=== PATIENT | male | born 1950 | race Caucasian/White ===

== ENCOUNTER 2020-08-01 09:41 | Outpatient (REF) | payer MEDICARE, MEDICAID, SELFPAY ==
[2020-08-01 10:23] LABS: MANUAL DIFF FLAG NO
[2020-08-01 10:29] LABS: Basophils Percent Auto 0.7 % (0-2); Eosinophils Absolute Auto 0.3 X10*3/uL (0.0-0.4); Eosinophils Percent Auto 4.6 % (0-4); Hematocrit 43.7 % (42-52); Hemoglobin 15.5 g/dl (14.0-18.0); Imm Gran Abs Auto 0.04 X10*3/uL (0.00-0.03); Imm Gran Pct Auto 0.7 % (0.0-0.4); Lymphocytes Absolute Auto 2.2 X10*3/uL (1.2-4.9); Lymphocytes Percent Auto 37.8 % (20-40); Mean Corpuscular HGB Conc 35.5 g/dl (31.0-36.0); Mean Corpuscular Hemoglobin 33.1 pg (27.0-33.0); Mean Corpuscular Volume 93.4 fL (80-98); Mean Platelet Volume 10.2 fL (9.4-12.4); Monocytes Absolute Auto 0.6 X10*3/uL (0.1-1.2); Monocytes Percent Auto 9.7 % (2-11); Neutrophils Absolute Auto 2.8 X10*3/uL (2.0-8.3); Neutrophils Percent Auto 46.5 % (45-73); Platelet Count 230 X10*3/uL (160-400); Red Blood Count 4.68 X10*6/uL (4.60-5.80); White Blood Count 5.9 X10*3/uL (4.8-10.8)
[2020-08-01 10:49] LABS: Creatinine Urine 88.71 mg/dL; Microalbumin Urine < 5.0 mg/L
[2020-08-01 11:03] LABS: Estimated Average Glucose 123 mg/dL; Hemoglobin A1c % 5.9 %
[2020-08-01 11:09] LABS: Thyroid Stimulating Hormone 3.25 uIU/mL (0.32-4.0)
[2020-08-01 11:10] LABS: Alanine Aminotransferase 38 U/L (0-40); Albumin Level 4.5 g/dL (3.5-5.0); Alkaline Phosphatase 56 U/L (39-117); Anion Gap 13 (12-20); Aspartate Amino Transferase 25 U/L (5-37); Bilirubin Total 1.5 mg/dL (0.0-1.0); Blood Urea Nitrogen 23 mg/dL (9-16); Calcium 9.8 mg/dL (8.4-10.2); Carbon Dioxide 28 mmol/L (22-29); Chloride 103 mmol/L (96-108); Cholesterol 133 mg/dL; Estimated Glomerular Filt Rate 53; Glucose Fasting 114 mg/dL (60-99); HDL Cholesterol 37 mg/dL; LDL Cholesterol Calculated 83 mg/dl; Potassium 5.6 mmol/L (3.3-5.1); Sodium 138 mmol/L (135-145); Total Protein 7.1 g/dL (6.5-8.0); Triglycerides 69 mg/dL
== END 2020-08-01 09:42 | disposition home or self-care (01) ==
LOC: HO.10HDL 09:41
PROVIDERS: Visit Provider Internal Medicine
DX: E11.9 Type 2 diabetes mellitus without complications (principal); I10 Essential (primary) hypertension
CPT/HCPCS: 36415; 80053; 80061; 82043; 83036; 84443; 85025

== ENCOUNTER 2020-09-04 09:48 | Outpatient (REF) | payer MEDICARE, MEDICAID, SELFPAY ==
[2020-09-04 11:23] LABS: Anion Gap 13 (12-20); Blood Urea Nitrogen 19 mg/dL (9-16); Calcium 9.8 mg/dL (8.4-10.2); Carbon Dioxide 26 mmol/L (22-29); Chloride 107 mmol/L (96-108); Estimated Glomerular Filt Rate > 60; Glucose Random 96 mg/dL (60-115); Potassium 5.4 mmol/L (3.3-5.1); Sodium 141 mmol/L (135-145)
== END 2020-09-04 09:49 | disposition home or self-care (01) ==
LOC: HO.LAB 09:48
PROVIDERS: PCP Internal Medicine; Visit Provider Internal Medicine
DX: E87.5 Hyperkalemia (principal)
CPT/HCPCS: 36415; 80048

== ENCOUNTER 2022-10-29 08:51 | Outpatient (REF) | payer MEDICARE, MEDICAID, SELFPAY ==
[2022-10-29 14:56] LABS: MANUAL DIFF FLAG NO
[2022-10-29 15:14] LABS: Basophils Absolute Auto 0.1 X10*3/uL (0.0-0.2); Basophils Percent Auto 0.8 % (0-2); Eosinophils Absolute Auto 0.6 X10*3/uL (0.0-0.4); Eosinophils Percent Auto 7.2 % (0-4); Hematocrit 44.2 % (42.0-52.0); Hemoglobin 15.1 g/dl (14.0-18.0); Imm Gran Abs Auto 0.08 X10*3/uL (0.00-0.03); Lymphocytes Absolute Auto 2.5 X10*3/uL (1.2-4.9); Lymphocytes Percent Auto 32.5 % (20-40); Mean Corpuscular HGB Conc 34.2 g/dl (31.0-36.0); Mean Corpuscular Hemoglobin 32.2 pg (27.0-33.0); Mean Corpuscular Volume 94.2 fL (80.0-98.0); Mean Platelet Volume 10.5 fL (9.4-12.4); Monocytes Absolute Auto 0.7 X10*3/uL (0.1-1.2); Monocytes Percent Auto 8.5 % (2-11); Neutrophils Absolute Auto 3.8 x10*3/uL (2.0-8.3); Platelet Count 270 X10*3/uL (160-400); Red Blood Count 4.69 X10*6/uL (4.60-5.80); Red Cell Distribution Width 11.9 % (11.0-16.0); White Blood Count 7.7 X10*3/uL (4.8-10.8)
[2022-10-29 16:03] LABS: Alanine Aminotransferase 38 U/L (0-40); Albumin Level 4.2 g/dL (3.5-5.0); Alkaline Phosphatase 61 U/L (39-117); Anion Gap 14 (12-20); Aspartate Amino Transferase 27 U/L (5-37); Bilirubin Total 0.6 mg/dL (0.0-1.0); Blood Urea Nitrogen 19 mg/dL (9-16); Calcium 9.7 mg/dL (8.4-10.2); Carbon Dioxide 27 mmol/L (22-29); Chloride 104 mmol/L (96-108); Cholesterol 148 mg/dL; Estimated Glomerular Filt Rate 56; Glucose Fasting 118 mg/dL (60-99); HDL Cholesterol 35 mg/dL; LDL Cholesterol Calculated 72 mg/dl; Potassium 5.4 mmol/L (3.3-5.1); Sodium 140 mmol/L (135-145); Total Protein 7.3 g/dL (6.5-8.0); Triglycerides 206 mg/dL
[2022-10-29 17:05] LABS: TSH reflex Free T4 4.08 uIU/mL (0.32-4.0)
[2022-10-29 19:28] LABS: Free T4 (Free Thyroxine) 0.97 ng/dL (0.71-1.85)
== END 2022-10-29 08:52 | disposition home or self-care (01) ==
LOC: HO.CHCLDS 08:51
PROVIDERS: Visit Provider Internal Medicine
DX: I10 Essential (primary) hypertension (principal); E11.9 Type 2 diabetes mellitus without complications
CPT/HCPCS: 36415; 80053; 80061; 84439; 84443; 85025

== ENCOUNTER 2022-11-17 10:23 | Outpatient (REF) | payer MEDICARE, MEDICAID, SELFPAY ==
[2022-11-17 14:37] LABS: MANUAL DIFF FLAG NO
[2022-11-17 14:42] LABS: Basophils Percent Auto 0.5 % (0-2); Eosinophils Absolute Auto 0.6 X10*3/uL (0.0-0.4); Eosinophils Percent Auto 8.6 % (0-4); Hematocrit 42.3 % (42.0-52.0); Hemoglobin 14.9 g/dl (14.0-18.0); Imm Gran Abs Auto 0.07 X10*3/uL (0.00-0.03); Lymphocytes Absolute Auto 2.1 X10*3/uL (1.2-4.9); Lymphocytes Percent Auto 28.7 % (20-40); Mean Corpuscular HGB Conc 35.2 g/dl (31.0-36.0); Mean Corpuscular Hemoglobin 32.3 pg (27.0-33.0); Mean Corpuscular Volume 91.8 fL (80.0-98.0); Mean Platelet Volume 10.5 fL (9.4-12.4); Monocytes Absolute Auto 0.7 X10*3/uL (0.1-1.2); Neutrophils Absolute Auto 3.9 x10*3/uL (2.0-8.3); Neutrophils Percent Auto 52.2 % (45-73); Platelet Count 229 X10*3/uL (160-400); Red Blood Count 4.61 X10*6/uL (4.60-5.80); Red Cell Distribution Width 12.2 % (11.0-16.0); White Blood Count 7.4 X10*3/uL (4.8-10.8)
[2022-11-17 15:10] LABS: Anion Gap 13 (12-20); Blood Urea Nitrogen 21 mg/dL (9-16); Carbon Dioxide 25 mmol/L (22-29); Chloride 107 mmol/L (96-108); Estimated Glomerular Filt Rate > 60; Glucose Random 144 mg/dL (60-115); Potassium 4.6 mmol/L (3.3-5.1); Sodium 140 mmol/L (135-145)
== END 2022-11-17 10:24 | disposition home or self-care (01) ==
LOC: HO.CHCLDS 10:23
PROVIDERS: Visit Provider Internal Medicine
DX: E87.5 Hyperkalemia (principal)
CPT/HCPCS: 36415; 80048; 85025

== ENCOUNTER 2023-08-19 08:43 | Outpatient (REF) | payer MEDICARE, MEDICAID, SELFPAY ==
[2023-08-19 14:31] LABS: Appearance Urine Clear; Color Urine Yellow; Glucose Urine UA Negative (Negative); Leukocyte Esterase Urine Negative (Negative); Nitrite Urine Negative (Negative); PH 5.5 (5.0-9.0); Urine Blood Negative (Negative); Urine Ketones Negative (Negative); Urine Protein Negative (Neg-Trace)
[2023-08-19 14:57] LABS: Estimated Average Glucose 166 mg/dL; Hemoglobin A1c % 7.4 % (<6.0)
[2023-08-19 15:01] LABS: Anion Gap 16 (12-20); Blood Urea Nitrogen 31 mg/dL (9-16); Calcium 10.4 mg/dL (8.4-10.2); Carbon Dioxide 24 mmol/L (22-29); Chloride 106 mmol/L (96-108); Estimated Glomerular Filt Rate 50; Glucose Random 137 mg/dL (60-115); Potassium 5.6 mmol/L (3.3-5.1); Sodium 140 mmol/L (135-145)
[2023-08-20 08:14] LABS: HIV AB/AG Nonreactive (Nonreactive); HIV Num 1 0.05 S/CO (0.00-0.99); ~HepC Num1 0.06 S/CO (0.00-0.79); ~Hepatitis C Antibody Nonreactive (Nonreactive)
[2023-08-23 22:44] LABS: RPR Rapid Plasma Reagin NON-REACTIVE (NON-REACTIVE)
== END 2023-08-19 08:44 | disposition home or self-care (01) ==
LOC: HO.CHCLDS 08:43
PROVIDERS: Visit Provider Internal Medicine
DX: Z11.3 Encounter for screening for infections with a predominantly sexual mode of transmission (principal); E11.9 Type 2 diabetes mellitus without complications
CPT/HCPCS: 36415; 80048; 81003; 83036; 86592; 86803; 87389

== ENCOUNTER 2023-08-26 10:17 | Outpatient (REF) | payer OTHER, SELFPAY ==
--- NOTE | ~2023-08-26 | US_ITS ---
EXAMINATION: US RETROPERITONEAL LIMITED (RENAL ONLY) CLINICAL INFORMATION: Low GFR. COMPARISON: Ultrasound abdomen 04/08/2017. TECHNIQUE: Real-time imaging of the kidneys. FINDINGS: RIGHT KIDNEY: 10.6 x 4.6 x 6.2 cm (SAG x AP x TRV). Cortical thinning. Normal echogenicity. No calculi or focal parenchymal lesions. No hydronephrosis. LEFT KIDNEY: 10.2 x 5.0 x 5.5 cm (SAG x AP x TRV). Cortical thinning. Normal echogenicity. No calculi or focal parenchymal lesions. No hydronephrosis. US/US renal BI IMPRESSION: Bilateral renal cortical thinning. No hydronephrosis.
== END 2023-08-26 10:18 | disposition home or self-care (01) ==
LOC: HO.HMGCX 10:17
PROVIDERS: PCP Internal Medicine; Visit Provider Internal Medicine
DX: R94.4 Abnormal results of kidney function studies (principal)
CPT/HCPCS: 76775

== ENCOUNTER 2024-07-17 09:41 | Outpatient (REF) | payer OTHER, SELFPAY ==
--- OUTSIDE RECORDS SUMMARY | 2024-07-17 10:50 | XMS_ITS | Clinical Summary ---
Author Organization [email or web address] Address [address] [facility] [address] [place] [address] Care Team Providers Care Gas Station Clerk Name Role Phone Trace Marquez MD Primary Care Provider [phone] Allergies Active Allergy Reactions Criticality Noted Date Comments Clonidine 07/31/2022 Other reaction(s): felt like zombie and dizzy Erythromycin Unknown 04/07/2017 Other reaction(s): Upset stomach Iodinated Contrast Media 07/31/2022 Metronidazole Low 07/19/2020 Peanut-Containing Drug Products 07/31/2022 Medications glucose 4 g chewable tabletIndicati ons:Type 2 diabetes mellitus without complication, without long-term current use of insulin ([facility]),Type 2 diabetes mellitus without complication, without long-term current use of insulin ([facility]) Chew 4 tablets (16 g) if needed for low blood sugar. 50 tablet 06/20/19 25 Active metFORMIN XR (Glucophage-XR ) 500 MG 24 hr tablet Take 1 tablet (500 mg) by mouth with evening meal. Do not crush, chew, or split. 30 tablet 07/18/19 25 Active amLODIPine (Norvasc) 5 MG tablet Take 1 tablet (5 mg) by mouth Once per day. 30 tablet 07/18/19 25 026 Active OneTouch Delica Lancets 33G misc Test blood sugar once daily 100 each 07/18/19 Active glucose blood (OneTouch Ultra) test stripIndicatio ns:Type 2 diabetes mellitus without complication, without long-term current use of insulin ([facility]) Test blood sugar once daily 100 strip 07/18/19 25 Active celecoxib (CeleBREX) 200 MG capsuleIndicat ions:Other secondary acute gout of multiple sites TAKE 1 CAPSULE BY MOUTH 2 TIMES DAILY. 60 capsule 08/10/19 24 025 Discontinued(Me d list cleanup (will not trigger notification to Pharmacy)) furosemide (Lasix) 20 MG tabletIndicati ons:Hyperkalem ia Take 1 tablet (20 mg) by mouth Once per day. 5 tablet 11 08/12/19 24 025 Discontinued(Me d list cleanup (will not trigger notification to Pharmacy)) glucose 4 g chewable tabletIndicati ons:Type 2 diabetes mellitus without complication, without long-term current use of insulin ([facility]) Chew 4 tablets (16 g) if needed for low blood sugar. 50 tablet 12 10/11/19 24 025 Discontinued(Re order (will not trigger notification to Pharmacy)) glucose blood ([employer] Experienceuch Ultra) test stripIndicatio ns:Type 2 diabetes mellitus without complication, without long-term current use of insulin ([facility]) To check the FS 2 times a day 100 strip 11 10/28/19 025 Discontinued(Re order (will not trigger notification to Pharmacy)) carbamide peroxide (Debrox) 6.5 % otic solutionIndica tions:Bilatera l impacted cerumen Administer 5-10 drops into affected ear(s) 2 times daily for 4 days. 30 mL 06/20/19 025 empagliflozin (Jardiance) 10 MGIndications: Type 2 diabetes mellitus without complication, without long-term current use of insulin ([facility]) Take 1 tablet (10 mg) by mouth Once per day. 30 tablet 11 06/20/19 025 Discontinued(Wil panda refused) Hospital, Clinic, or Other Facility Administered Medication Ordered Dose Route Frequency Start Date End Date Status Insulin Lispro solution 10 UnitsIndications:Type 2 diabetes mellitus without complication, without long-term current use of insulin (CMS/HCC) 10 Units IJ Once 06/19/2024 06/19/2024 Ended Active Problems Problem Noted Date Diagnosed Date Gout 07/31/2022 Type 2 diabetes mellitus 07/31/2022 Assessment & Plan (06/19/2023 3:06 AM EDT): Uncontrolled: The patient's diabetes medications are deemed ineffective. The plan includes discontinuing the old medication and initiating a new prescription. The patient expressed a preference for oral medication over injectables due to personal and caregiving responsibilities. A decision was made to prescribe 2 mg of an unspecified diabetes medication twice a day, starting with one 2 mg pill and adjusting based on blood sugar monitoring. The patient is advised to monitor blood sugar levels closely, especially for signs of hypoglycemia, which the patient has experienced in the past. Glucose tablets will be provided for emergency management of hypoglycemia. Additionally, the provider discussed the potential benefits of GLP-1 receptor agonists, which not only help in managing blood sugar levels but also offer cardiovascular and renal protection. The patient was given information on GLP-1s to review and discuss with Dr. Coffey in the upcoming appointment. Labs: glucose, hgb a1c Alcoholism 07/31/2022 Upper respiratory tract infection 07/31/2022 Insomnia 12/10/2020 Benign essential hypertension 03/10/2017 Encounters Date Type Department Care Team Description 07/17/2024 Travel 06/20/2024 Telephone [facility] [address] [place] [address] Trace Marquez MD 06/19/2024 9:30 AM EDT Office Visit [facility] [address] [place] [address] Trace Marquez MD Type 2 diabetes mellitus without complication, without long-term current use of insulin ([facility]) (Primary Dx); 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; Benign essential hypertension; Bilateral impacted cerumen; Type 2 diabetes mellitus without complication, without long-term current use of insulin (CMS/[facility]); Encounter for Medicare annual wellness exam 06/19/2024 Telephone [facility] [address] [place] [address] Trace Marquez MD 06/19/2024 Telephone [facility] [address] [place] [address] Trace Marquez MD 06/19/2024 Travel 06/16/2024 Telephone [facility] [address] [place] [address] Trace Marquez MD Chart Prep 06/16/2024 Orders Only [facility] [address] [place] [address] Maulik Frederick MD 06/12/2024 Patient Outreach [address] [address] Trace Marquez MD Pre-visit Planning (Pre visit planning LVM ) 05/22/2024 Orders Only [address] [address] Trace Marquez MD Neoplasm of scalp (Primary Dx) 05/22/2024 Telephone [facility] [address] [place] [address] Trace Marquez MD Referral 05/02/[address] [address] Trace Marquez MD Referral 04/19/2024 Refill [facility] [address] [place] [address] Ju Mann MD from Last 3 Months Immunizations Name Administration Dates Next Due Hep A, Unspecified 10/21/2005 Hep B, Unspecified 04/28/2006,12/30/2005 Td (adult), unspecified 11/10/2002 Social History Tobacco Use Types Packs/Day Years Used Date Smoking Tobacco: Former Cigarettes Q uit: 1988 Smokeless Tobacco: Never Alcohol Use Standard Drinks/Week Comments Not Currently 0 (1 standard drink = 0.6 oz pur e alcohol) Depression Answer Date Recorded Patient Health Questionnaire-9 Score 2 07/12/2023 Patient Health Questionnaire-9 Score 2 07/12/2023 Last PHQ-9: Questionnaire Data Not on file 0 07/12/2023 Housing Stability Answer Date Recorded What is your housing situation today? I have edson moreno 07/08/[address] you li ve. Do you have problems with any of the following? None of the above 07/08/2023 Food Insecurity Answer Date Recorded Within the past 12 months, y ou worried that your food would run out before you got money to buy more: Sometimes True 2023 Within the past 12 months,th e food you bought just didn't last and you didn't have enough money to get more: Sometimes True 07/08/2023 Transportation Answer Date Recorded In the past 12 months, has l ack of transportation kept you from medical appts, meetings, work or from getting things needed for daily living? No 07/08/2023 Utilities Answer Date Recorded In the past 12 months, has t he electric, gas, oil or water company threatened to shut off services in your home? No 07/08/2023 Depression Answer Date Recorded Patient Health Questionnaire-2 Score 1 07/12/2023 Sex and Gender Information Value Date Recorded Sex Assigned at Male 01/19/2022 10:22 AM EDT Legal Sex Male 10:22 AM EDT Gender Identity Male 01/19/2022 10:22 AM EDT Sexual Orientation Straight 01/19/2022 10 :22 AM EDT Last Filed Vital Signs Vital Sign Reading Time Taken Comments Blood Pressure 110/66 06/19/2024 9:32 AM EDT Pulse 64 06/19/2024 9:32 AM EDT Temperature 36.6 ??C (97.9 ??F) 06/19/2024 9:32 AM ED T Respiratory Rate 20 06/19/2024 9:32 AM EDT Oxygen Saturation 98% 06/19/2024 9:32 AM EDT Inhaled Oxygen Concentration - - Weight 78.9 kg (174 lb) 06/19/2024 9:32 AM EDT Height 170.2 cm (5' 7 ) 06/19/2024 9:32 AM EDT Body Mass Index 27.25 06/19/2024 9:32 AM EDT Plan of Treatment Upcoming Encounters Date Type Department Care Team (Late st Contact Info) Description 08/15/2024 9:00 AM EDT Medication Management [facility] [address] [place] [address] Laura Rader, PharmD [address] [place] [address] 2024 9:45 AM EDT Office Visit [facility] [address] [place] [address] Trace Marquez MD [address] [place] [address] Health Maintenance Due Date Last Done Comments CT Colonography 1951 FIT 1951 FOBT 1951 Sigmoidoscopy 1951 Derm Melanoma Skin Check 03/22/1952 Eye Exam 09/19/1961 Alcohol/Substance Use Screening 1963 Zoster Vaccines (1 of 2) 09/19/2001 Diabetes: Urine Protein Screening 08/01/2021 08/01/2020 Lipid Panel 10/30/2023 10/29/2022 SDOH Screening 07/07/2024 07/08/2023 Depression Screening 07/11/2024 07/12/2023, 07/12/19 Diabetes: Hemoglobin A1C 09/18/2024 025, 01/13/2024, 08/19/2023, Additional history exists Influenza Vaccine (#1) 2024 Postp oned from 11/21/2023 (Patient Refused) COVID-19 Vaccine (2 - 2023- season) 2025 06/21/2020 Postponed from 11/21/2023 (Patient Refused) DTaP/Tdap/Td Vaccines (1 - Tdap) 01/12/2025 11/10/2002 Postponed from 11/11/2002 (Patient Refused) Diabetes: Foot Exam 01/12/2025 01/13/2024, 09/01/2022, 09/01/2022, Additional history exists Pneumococcal Vaccine: 50+ Years (1 of 2 - PCV) 01/12/2025 Postponed from 09/19/1970 (Patient Refused) Tobacco Screening 06/19/2025 06/19/2024 RSV Patients and Patients Aged 60 years or older (1 - 1-dose 75+ series) 09/19/2026 FIT DNA/Cologuard 01/18/2027 01/19/2024 Colonoscopy 06/16/2031 06/15/2024 Colorectal Cancer Screening 06/16/2031 Hepatitis A Vaccines Aged Out 10/21/2005 No long er eligible based on patient's age to complete this topic Hepatitis B Vaccines Discontinued 04/28/2006, 12/31/19 06 Hepatitis C Screening Completed 08/19/2023 HIB Vaccines Aged Out No longer eligi ble based on patient's age to complete this topic HPV Vaccines Aged Out No longer eligi ble based on patient's age to complete this topic IPV Vaccines Aged Out No longer eligi ble based on patient's age to complete this topic Meningococcal Vaccine Aged Out No destin bhupinder eligible based on patient's age to complete this topic RSV under 20 months Aged Out No longe r eligible based on patient's age to complete this topic Rotavirus Vaccines Aged Out No longer eligible based on patient's age to complete this topic Procedures Procedure Name Priority Date/Time Associated Diagnosis Comments POCT GLUCOSE Routine 06/19/2024 10:11 AM EDT Type 2 diabetes mellitus without complication, without long-term current use of insulin (CMS/HCC) POCT GLYCATED HEMOGLOBIN, TOTAL Routine 06/19/2024 10:10 AM EDT Type 2 diabetes mellitus without complication, without long-term current use of insulin (CMS/HCC) HM COLONOSCOPY Routine 06/15/2024 8:47 AM EDT AMB REFERRAL TO DERMATOLOGY Urgent 05/24/2024 Neoplasm of scalp LAB COLOGUARD?? COLON CANCER SCREEN Routine 01/19/2024 8:15 AM EDT Screening for colon cancer HEPATITIS C AB W/REFL TO HCV RNA, QN, PCR Routine 08/19/2023 8:45 AM EDT Routine screening for STI (sexually transmitted infection) LIPID PANEL, STANDARD Routine 10/29/2022 8:55 AM EDT Benign essential hypertension ZZZ HISTORICAL MICROALBUMIN, RANDOM Routine 08/01/2020 9:50 AM EDT from Last 3 Months or Most Recently Relevant to Health Maintenance Results * (ABNORMAL) POCT Glucose (06/19/2024 10:11 AM EDT) [facility] Glucose Blood, POC 500(A) 60 - 200 mg/dL QC Media Lot # [id number] Comment:[facility] Lot# Expiration Date [id number] Comment:random Blood Capillary blood specimen / Unknown 06/19/2024 10:11 AM EDT Trace Marquez MD POINT OF CARE TEST ENTER/ED IT ORDERABLES Final Result * (ABNORMAL) POCT HGB A1C (06/19/2024 10:10 AM EDT) Hemoglobin A1C 11.6(A) 4.0 - 6.0 % QC Media Lot # [id number] Lot# Expiration Date ,026 Blood 06/19/2024 10:1 0 AM EDT Trace Marquez MD POINT OF CARE TEST ENTER/ED IT ORDERABLES Final Result * Hm Colonoscopy (06/15/2024 8:47 AM EDT) [facility] Provider HEALTH MAINTENANCE Final Result * Referral to Dermatology (05/24/2024) Trace Marquez MD OUTPATIENT REFERRAL ORDERAB LES Final Result * (ABNORMAL) Cologuard?? colon cancer screening (01/19/2024 8:15 AM EDT) Cologuard Result Positive( A) Negative 01/26/2024 7:50 PM EST [facility] (CLIA #:[id number]) Comment: POSITIVE TEST RESULT. A positive Cologuard result should be followed with a colonoscopy or visual examination of the colon. The normal value (reference range) for this assay is negative. TEST DESCRIPTION: Composite algorithmic analysis of stool DNA-biomarkers with hemoglobin immunoassay. ?? Quantitative values of individual biomarkers are not reportable and are not associated with individual biomarker result reference ranges. Cologuard is intended for colorectal cancer screening of adults of either sex, 45 years or older, who are at average-risk for colorectal cancer (CRC). Cologuard has been approved for use by the U.S. FDA. The performance of Cologuard was established in a cross sectional study of average-risk adults aged 50-84. Cologuard performance in patients ages 45 to 49 years was estimated by sub-group analysis of near-age groups. Colonoscopies performed for a positive result may find as the most clinically significant lesion: colorectal cancer [4.0%], advanced adenoma (including sessile serrated polyps greater than or equal to 1cm diameter) [20%] or non- advanced adenoma [31%]; or no colorectal neoplasia [45%]. These estimates are derived from a prospective cross-sectional screening study of 10,000 individuals at average risk for colorectal cancer who were screened with both Cologuard and colonoscopy. (Ugo Uribe. et al, N Engl J Med 2014;370(14):4831-9385.) Cologuard may produce a false negative or false positive result (no colorectal cancer or precancerous polyp present at colonoscopy follow up). A negative Cologuard test result does not guarantee the absence of CRC or advanced adenoma (pre-cancer). The current Cologuard screening interval is every 3 years. ([employer] Cancer Society and U.S. Multi-Society Task Force). Cologuard performance data in a 10,000 patient pivotal study using colonoscopy as the reference method can be accessed at the following location: www.[employer]/results. Additional description of the Cologuard test process, warnings and precautions can be found at www.cologuard.com. Stool specimen (specimen) 01/19/2024 8:15 AM EDT 01/20/2024 12:53 PM EDT us Trace Marquez MD LAB MOLECULAR DIAGNOSTICS O RDERABLES Final Result [facility] (CLIA #:[id number]) [address] [place] [address], * Hepatitis C Antibody with Reflex to HCV, RNA, Quantitative, Real-Time PCR (08/19/2023 8:45 AM EDT) Hepatitis C Antibody Nonreactive Nonreactive [facility] Comment:Antibodies to HCV no t detected; does not exclude early acuteHCV infection. Blood Venous blood specimen / Unknown 08/19/2023 8:45 AM EDT 08/19/2023 2:28 PM EDT us Trace Marquez MD LAB BLOOD ORDERABLES Final Result Performing Organization Address [facility]/ZIP Co de Phone Number [facility] [address] [place] [phone] * Lipid Panel, Standard (10/29/2022 8:55 AM EDT) Triglycerides 206 mg/dL [facility] Comment:Desirable Triglyceri de: less than 150 mg/dLBorderline High Triglyceride 150-199 mg/dLHigh Triglyceride: 200-499 mg/dLVery High Triglyceride: greater than or equal to 5OO mg/dL Cholesterol 148 mg/dL [facility] Comment:Desirable Cholestero l: less than 200 mg/dLBorderline High Cholesterol: 200-239 mg/dLHigh Cholesterol: greater than 239 mg/dL LDL Cholesterol Calculated 72 mg/dl [facility] Comment:Desirable LDL: less than 100 mg/dLNear Optimal/Above Optimal LDL: 110- 129 mg/dLBorderline High LDL: 130-159 mg/dLHigh LDL: 160-189 mg/dLVery High LDL: greater than or equal to 190 mg/dL HDL Cholesterol 35 mg/dL [facility] Comment:Desirable HDL: great er than 40 mg/dL Note: This HDL assay may give artificially low results in patients with liver disease. Blood Venous blood specimen / Unknown 10/29/2022 8:55 AM EDT 10/29/2022 2:51 PM EDT us Trace Marquez MD LAB BLOOD ORDERABLES Final Result Performing Organization Address [facility]/ZIP Co de Phone Number [facility] [address] [place] [phone] * MICROALBUMIN, RANDOM (08/01/2020 9:50 AM EDT) Creatinine Urine 88.71 mg/dL [facility] Microalbum/Creati nine Ratio Ur TNP ug/mg cr [facility] Comment: Unable to calculate albumin/creatinine ratio due to low microalbumin or creatinine result. Microalbumin Urine <5.0 mg/L [facility] 08/01/2020 9:50 AM EDT us Trace Marquez MD HISTORICAL/NON ORDERABLE [place] Final Result [facility] Anywhere [address] from Last 3 Months or Most Recently Relevant to Health Maintenance Insurance [facility]LY [facility] RESIDENTIAL OPTIONS (HMO D-SNP) [place] [id number] Care Teams Gas Station Clerk Relationship Specialty Start Date End Date Trace Marquez MD [address] [place] [phone] PCP - General Internal Medicine 09/10/15
--- OUTSIDE RECORDS SUMMARY | 2024-07-17 10:50 | XMS_ITS | Encounter Summary ---
Author Organization [employer] Address [address] [facility] [address] [place] [address] Care Team Providers Care Tennis Ball Coverer Hand Name Role Phone Trace Marquez MD Primary Care Provider [phone] Reason for Referral * Consultation (Urgent) - Authorized Specialty Diagnoses / Procedures Referred By Mark love Referred To Contact Dermatology Diagnoses Neoplasm of scalp Trace Marquez MD [address] [place] [address] Phone: tel: fax: Sb Avalos MD [address] [place] [address] Phone: tel: fax: Referral ID Status Reason Start Date Expiration Date Visits Requested Visits Authorized [id number] Authorized Specialty Services Required 05/22/2024 05/22/2025 1 1 Encounter Details Date Type Department Care Team (Late st Contact Info) Description 05/22/2024 Orders Only [facility] [address] [place], [place] [phone] Trace Marquez MD [address] [place], [place] [phone] Neoplasm of scalp (Primary Dx) Social History Tobacco Use Types Packs/Day Years [...] Orientation Straight 01/19/2022 10 :22 AM EDT documented as of this encounter Plan of Treatment Upcoming Encounters Date Type Department Care Team ([facility] st Contact Info) Description 08/15/2024 9:00 AM EDT Medication Management [facility] [address] [place] [address] Laura Rader, PharmD [address] [place] [address] 2024 9:45 AM EDT Office Visit [facility] [address] [place] [address] Trace Marquez MD [address] [place] [address] documented as of this encounter Procedures Procedure Name Priority Date/Time Associated Diagnosis Comments AMB REFERRAL TO DERMATOLOGY Urgent 05/24/2024 Neoplasm of scalp documented in this encounter Results * Referral to Dermatology (05/24/2024) us Trace Marquez MD OUTPATIENT REFERRAL ORDERAB LES Final Result documented in this encounter Visit Diagnoses Diagnosis Neoplasm of scalp- Primary documented in this encounter Additional Health Concerns Assessment Noted Time PHQ-9 Depression Total Score: 2 07/12/19 24 11:45 AM EDT documented as of this encounter Care Teams Tennis Ball Coverer Hand Relationship Specialty Start Date End Date Trace Marquez MD [address] [place] [phone] PCP - General Internal Medicine 09/10/15 documented as of this encounter
--- OUTSIDE RECORDS SUMMARY | 2024-07-17 10:50 | XMS_ITS | Encounter Summary ---
Author Organization [employer] Address [address] [facility] 7t [place] [address] Care Team Providers Care Car Salesman Name Role Phone Trace Marquez MD Primary Care Provider [phone] Encounter Details Date Type Department Care Team ([facility] st Contact Info) Description 06/19/2024 Telephone [facility] [address] [place], [place] [phone] Trace Marquez MD [address] [place], [place] [phone] Social History Tobacco Use Types Packs/Day Years [...] AM EDT documented as of this encounter Miscellaneous Notes * Telephone Encounter - Martha Lamb - 06/19/2024 2:48 PM EDT Tc from pt stating he was advised during today's PE appointment to call back with blood sugar reading. Pt reported blood sugar is at 222. If any questions or concerns contact pt at [phone] documented in this encounter Plan of Treatment Upcoming Encounters Date Type Department Care Team (Late st Contact Info) Description 08/15/2024 9:00 AM EDT Medication Management [facility] [address] [place] [address] Laura Rader, PharmD [address] [place] [address] 2024 9:45 AM EDT Office Visit [facility] [address] [place] [address] Trace Marquez MD [address] [place] [address] documented as of this encounter Visit Diagnoses Not on filedocumented in this encounter Additional Health Concerns Assessment Noted Time PHQ-9 Depression Total Score: 2 07/12/19 24 11:45 AM EDT documented as of this encounter Care Teams Car Salesman Relationship Specialty Start Date End Date Trace Marquez MD [address] [place] [address] PCP - General Internal Medicine 09/10/15 documented as of this encounter
--- OUTSIDE RECORDS SUMMARY | 2024-07-17 10:50 | XMS_ITS | Encounter Summary ---
Author Organization [employer] Address 75 [facility] 7t [place] [address] Care Team Providers Care Regional Transfer Liaison Name Role Phone Trace Marquez MD Primary Care Provider [phone] Encounter Details Date Type Department Care Team ([facility] st Contact Info) Description 10/30/2022 Orders Only [facility] MED & PEDS [address] [place], [place] [phone] Trace Marquez MD [address] [place], [place] [phone] Hyperkalemia (Primary Dx) Social History Tobacco Use Types Packs/Day Years Used Date Smoking Tobacco: Former Cigarettes Q uit: 1988 Smokeless Tobacco: Never Alcohol Use Standard Drinks/Week Comments Not Currently 0 (1 standard drink = 0.6 oz pur e alcohol) Sex and Gender Information Value Date Recorded Sex Assigned at Male 01/19/2022 10:22 AM EDT Legal Sex Male 10:22 AM EDT Gender Identity Male 01/19/2022 10:22 AM EDT Sexual Orientation Straight 01/19/2022 10 :22 AM EDT documented as of this encounter Miscellaneous Notes * Result Encounter Note - Trace Marquez MD - 10/30/2022 4:50 PM EDT Please call. Labs reviewed: potassium is back to normal. Pt has eosinophilia which could be due to parasitic disease and or some allergies. I will order some stool test. If Mr Jose Weir is using some OTC medication he should stop it. The orders will be placed. documented in this encounter Plan of Treatment Upcoming Encounters Date Type Department Care Team (Late st Contact Info) Description 08/15/2024 9:00 AM EDT Medication Management [facility] MED & PEDS [address] [place] [address] Laura Rader, PharmD [address] [place] [address] 2024 9:45 AM EDT Office Visit [facility] MED & PEDS [address] [place] [address] Trace Marquez MD [address] [place], [place] [phone] documented as of this encounter Procedures Procedure Name Priority Date/Time Associated Diagnosis Comments BASIC METABOLIC PANEL Routine 11/17/2022 10:25 AM EDT Hyperkalemia CBC WITH AUTO DIFFERENTIAL Routine 11/17/2022 10:23 AM EDT Hyperkalemia documented in this encounter Results * (ABNORMAL) Basic Metabolic Panel (11/17/2022 10:25 AM EDT) Sodium 140 135 - 145 mmol/L [facility] Potassium 4.6 3.3 - 5.1 mmol/L [facility] Chloride 107 96 - 108 mmol/L [facility] Carbon Dioxide 25 22 - 29 mmol/L [facility] Anion Gap 13 12 - 20 [facility] Urea Nitrogen (BUN) 21(H) 9 - 16 mg/dL [facility] Creatinine, Serum 1.19 0.5 - 1.4 mg/dL [facility] Estimated Glomerular Filt Rate >60 [facility] Comment:NOTE: For -Am erican individuals, multiply the result by 1.210.Chronic Kidney Disease: Estimated GFR < 60 mL/min/1.40m8Meqhqx Kidney Disease: Estimated GFR < 15 mL/min/1.73m2 Glucose 144(H) 60 - 115 mg/dL [facility] Calcium 10.0 8.4 - 10.2 mg/dL [facility] Blood Venous blood specimen / Unknown 11/17/2022 10:25 AM EDT 11/17/2022 2:32 PM EDT Trace Marquez MD LAB BLOOD ORDERABLES Final Result [facility] [address] [place] [phone] * (ABNORMAL) CBC auto differential (11/17/2022 10:23 AM EDT) White Blood Count 7.4 4.8 - 10.8 X10*3/uL [facility] Red Blood Count 4.61 4.60 - 5.80 X10*6/uL [facility] Hemoglobin 14.9 14.0 - 18.0 g/dl [facility] Hematocrit 42.3 42.0 - 52.0 % [facility] Mean Corpuscular Volume 91.8 80.0 - 98.0 fL [facility] Mean Corpuscular Hemoglobin 32.3 27.0 - 33.0 pg [facility] Mean Corpuscular HGB Conc 35.2 31.0 - 36.0 g/dl [facility] Red Cell Distribution Width 12.2 11.0 - 16.0 % [facility] Platelet Count 229 160 - 400 X10*3/uL [facility] Mean Platelet Volume 10.5 9.4 - 12.4 fL [facility] Neutrophils Percent Auto 52.2 45 - 73 % [facility] Imm Gran Pct Auto 1.0(H) 0.0 - 0.4 % [facility] Lymphocytes Percent Auto 28.7 20 - 40 % [facility] Monocytes Percent Auto 9.0 2 - 11 % [facility] Eosinophils Percent Auto 8.6(H) 0 - 4 % [facility] Basophils Percent Auto 0.5 0 - 2 % [facility] NRBC Pct Auto 0.0 0.0 - 0.2 /100WBC [facility] Neutrophils Absolute Auto 3.9 2.0 - 8.3 x10*3/uL [facility] Imm Gran Abs Auto 0.07(H) 0.00 - 0.03 X10*3/uL [facility] Lymphocytes Absolute Auto 2.1 1.2 - 4.9 X10*3/uL [facility] Monocytes Absolute Auto 0.7 0.1 - 1.2 X10*3/uL [facility] Eosinophils Absolute Auto 0.6(H) 0.0 - 0.4 X10*3/uL [facility] Basophils Absolute Auto 0.0 0.0 - 0.2 X10*3/uL [facility] NRBC Abs Auto 0.000 0.0 - 0.012 X10*3/uL [facility] Blood Venous blood specimen / Unknown 11/17/2022 10:23 AM EDT 11/17/2022 2:32 PM EDT Trace Marquez MD LAB BLOOD ORDERABLES Final Result [facility] [address] [place] [phone] documented in this encounter Visit Diagnoses Diagnosis Hyperkalemia- Primary Hyperpotassemia documented in this encounter Care Teams Regional Transfer Liaison Relationship Specialty Start Date End Date Trace Marquez MD [address] [place] [address] PCP - General Internal Medicine 09/10/15 documented as of this encounter
--- OUTSIDE RECORDS SUMMARY | 2024-07-17 10:50 | XMS_ITS | Encounter Summary ---
Author Organization [employer] Address [address] [facility] [address] 7[address] [place] [address] Care Team Providers Care Mental Health Tech Name Role Phone Trace Marquez MD Primary Care Provider [phone] Encounter Details Date Type Department Care Team (Late st Contact Info) Description 06/16/2024 Orders Only [facility] MED & PEDS [address] [place], [place] [phone] ProviderMaulik MD Social History Tobacco Use Types Packs/Day Years [...] Description 08/15/2024 9:00 AM EDT Medication Management [facility] MED & PEDS [address] [place] [address] Laura Rader, PharmD [address] [place] [address] 2024 9:45 AM EDT Office Visit [facility] MED & PEDS [address] [place] [address] Trace Marquez MD [address] [place] [address] documented as of this encounter Procedures Procedure Name Priority Date/Time Associated Diagnosis Comments HM COLONOSCOPY Routine 06/15/2024 8:47 AM EDT documented in this encounter Results * Hm Colonoscopy (06/15/2024 8:47 AM EDT) us Historical Provider HEALTH MAINTENANCE Final Result documented in this encounter Visit Diagnoses Not on filedocumented in this encounter Additional Health Concerns Assessment Noted Time PHQ-9 Depression Total Score: 2 07/12/19 24 11:45 AM EDT documented as of this encounter Care Teams Mental Health Tech Relationship Specialty Start Date End Date Trace Marquez MD [address] [place] [address] PCP - General Internal Medicine 09/10/15 documented as of this encounter
--- OUTSIDE RECORDS SUMMARY | 2024-07-17 10:50 | XMS_ITS | Encounter Summary ---
Author Organization [employer] Address 75 [facility] 7 [place] [address] Care Team Providers Care Beef Farmer Name Role Phone Trace Marquez MD Primary Care Provider [phone] Reason for Visit * Reason Onset Date Comments Referral 05/22/2024 Encounter Details Date Type Department Care Team ([facility] st Contact Info) Description 05/22/2024 Telephone [facility] CHC MED & PEDS [address] [place], [place] [phone] Trace Marquez MD [address] [place] [address] Referral Social History Tobacco Use Types Packs/Day Years [...] encounter Miscellaneous Notes * Telephone Encounter - Rakel Brunson - 05/22/2024 9:55 AM EST Tc from [facility] with [facility] calling to inform appt that was given to pt for dermatology isn't till August. If PCP would like for pt to be seen sooner a new referral listing urgent will be needed. . Any further question best contact # [phone]. documented in this encounter Plan of Treatment Upcoming Encounters Date Type Department Care Team (Late st Contact Info) Description 08/15/2024 9:00 AM EDT Medication Management [facility] MED & PEDS [address] [place] [address] Laura Rader PharmD [address] [place] [address] 2024 9:45 AM EDT Office Visit [facility] MED & PEDS [address] [place] [address] Trace Marquez MD [address] [place] [address] documented as of this encounter Visit Diagnoses Not on filedocumented in this encounter Additional Health Concerns Assessment Noted Time PHQ-9 Depression Total Score: 2 07/12/19 24 11:45 AM EDT documented as of this encounter Care Teams Beef Farmer Relationship Specialty Start Date End Date Trace Marquez MD [address] [place] [phone] PCP - General Internal Medicine 09/10/15 documented as of this encounter
--- OUTSIDE RECORDS SUMMARY | 2024-07-17 10:50 | XMS_ITS | Encounter Summary ---
Author Organization [employer] Address [address] [facility] 7t [place] [address] Care Team Providers Care Transmission Line Engineer Name Role Phone Trace Marquez MD Primary Care Provider [phone] Reason for Visit * Reason Onset Date Comments Nurse Triage 04/14/2023 Encounter Details Date Type Department Care Team ([facility] st Contact Info) Description 04/14/2023 Telephone [facility] [address] [place], [place] [phone] Trace Marquez MD [address] [place], [place] [phone] Nurse Triage Social History Tobacco Use Types Packs/Day Years Used Date Smoking Tobacco: Former Cigarettes Q uit: 1989 Smokeless Tobacco: Never Alcohol Use Standard Drinks/Week [...] encounter Miscellaneous Notes * Telephone Encounter - Millie Vang RN - 04/14/2023 3:50 PM EST Triage call Pt reports coughing for 3 weeks now. Pt reports has never had a cough like this before.Pt reports will go for hours without cough and then gets a coughing spell which lasts for severalminutes and Pt can hardly breath when that happens. Pt is neg for fever, no hx of asthma, copd or other lung problems. Pt reports cough produces greenish -yellow sputum. Pt also reports drinks coffee all day and no other liquids. Pt is advised to reduce coffee intake and substitute with decaf tea, warm broth, water, juices about 6-8 glasses daily. Pt agrees will try to do that. Advised Pt to use warm steamy shower air in bathroom when coughing spell come. Breathing warm moist air may help also using warm or cool mist humidifier in bedroom at night. Honey 1-2 tsp at night before bed . Pt agrees with this disposition and home care advice. Apt to see Dr. Marquez 04/05/23 @ 1115a . Insurance is verified as active prior to booking. Protocol Used: Cough (Adult) Protocol-Based Disposition: See in Office or Video Visit within 3 Days Positive Triage Question: * Cough has been present for > 3 weeks * All higher-acuity triage questions were negative Care Advice Discussed: * Reassurance and Education - Cough * Cough Medicines * Coughing Spells * Prevent Dehydration * Humidifier * Reasons To Call Back - Difficulty breathing - Cough lasts more than 3 weeks - Fever lasts more than 3 days - You become worse * Telephone Encounter - Derrick Avendaño - 04/14/2023 3:13 PM EST Symptoms: Cough, Weakness Outcome: Schedule an urgent appointment (within 1 hour) or talk to a nurse or provider soon Reason: Getting worse documented in this encounter Plan of Treatment Upcoming Encounters Date Type Department Care Team (Late st Contact Info) Description 08/15/2024 9:00 AM EDT Medication Management [facility] MED & PEDS [address] [place] [address] Laura Rader, LesiaD [address] [place] [address] 2024 9:45 AM EDT Office Visit [facility] MED & PEDS [address] [place] [address] Trace Marquez MD [address] [place] [address] documented as of this encounter Visit Diagnoses Not on filedocumented in this encounter Care Teams Transmission Line Engineer Relationship Specialty Start Date End Date Trace Marquez MD [address] [place] [address] PCP - General Internal Medicine 09/10/15 documented as of this encounter
--- OUTSIDE RECORDS SUMMARY | 2024-07-17 10:50 | XMS_ITS | Encounter Summary ---
Author Organization [employer] Address 75 [facility] 7t [place] [address] Care Team Providers Care Bmw Sales Consultant Name Role Phone Trace Marquez MD Primary Care Provider [phone] Encounter Details Date Type Department Care Team (Late Contact Info) Description 11/17/2022 Orders Only [facility] CHC MED & PEDS [address] [place], [place] [phone] Trace Marquez MD [address] [place], [place] [phone] Other eosinophilia (Primary Dx) Social History Tobacco Use Types [...] Encounters Date Type Department Care Team (Late Contact Info) Description 08/15/2024 9:00 AM EDT Medication Management [facility] CH[facility] MED & PEDS [address] [place], [place] [phone] Laura Rader, PharmD [address] [place] [address] 2024 9:45 AM EDT Office Visit [facility] CH[facility] MED & PEDS [address] [place] [address] Trace Marquez MD [address] [place] [address] documented as of this encounter Visit Diagnoses Diagnosis Other eosinophilia- Primary documented in this encounter Care Teams Bmw Sales Consultant Relationship Specialty Start Date End Date Trace Marquez MD [address] [place] [address] PCP - General Internal Medicine 09/10/15 documented as of this encounter
--- OUTSIDE RECORDS SUMMARY | 2024-07-17 10:50 | XMS_ITS | Encounter Summary ---
Author Organization [employer] Address [address] [facility] 7t [place] [address] Care Team Providers Care Shafting Cleaner Name Role Phone Trace Marquez MD Primary Care Provider [phone] Reason for Referral * Imaging (Routine) - Closed Specialty Diagnoses / Procedures Referred By Contac t Referred To Contact Radiology Diagnoses Decreased GFR Procedures US RENAL BI Trace Marquez MD [address] [place] [address] Phone: tel: fax: [address] Phone: tel: fax: Referral ID Status Reason Start Date Expiration Date Visits Re quested Visits Authorized [id number] Closed 08/19/2023 08/18/2024 1 1 Encounter Details Date Type Department Care Team (Late st Contact Info) Description 08/12/2023 Orders Only [facility] MED & PEDS [address] [place], [place] [phone] Trace Marquez MD [address] [place], [place] [phone] Hyperkalemia (Primary Dx); Decreased GFR Social History Tobacco Use Types Packs/Day Years [...] Description 08/15/2024 9:00 AM EDT Medication Management [facility] MED & PEDS [address] [place] [address] Laura Rader, PharmD [address] [place] [address] 2024 9:45 AM EDT Office Visit [facility] MED & PEDS [address] [place] [address] Trace Marquez MD [address] [place] [address] Scheduled Orders Name Type Priority Associated Diagnoses Orde r Schedule Basic Metabolic Panel Lab Routine Hyperkalemia Decreased GFR Expected: 08/12/2023 (Approximate), Expires: 08/11/2024 [facility] Lab Routine Hyperkalemia Expected: 08/12/2023 (Approximate), Expires: 08/11/2024 Basic Metabolic Panel Lab Routine Hyperkalemia Decreased GFR Expected: 08/20/2023 (Approximate), Expires: 08/19/2024 documented as of this encounter Procedures Procedure Name Priority Date/Time Associated Diagnosis Comments US RENAL BI Routine 08/26/2023 10:33 AM EDT Decreased GFR documented in this encounter Results * US RENAL BI (08/26/2023 10:33 AM EDT) Anatomical Region Laterality Modality Abdomen Ultrasound 08/26/2023 10:3 3 AM EDT Narrative 09/15/2023 10:03 AM EDT ? [facility] ?[address] ? [place] [address] ? Ultrasound Report ? Signed ? Patient: Jose Weir ?MR#: [id number] ? : 1950 ?Acct:[id number] ? Age/Sex: 72 / M ?ADM Date: 08/26/23 ? Loc: HO.[facility]GCX ? Attending Dr: Trace Marquez MD ? Ordering Physician: Trace Marquez MD ?? Date of Service: 08/26/23 ?? Procedure(s): US renal BI ?? Accession Number(s): [id number] ? cc: Trace Marquez MD ? EXAMINATION: ?? US RETROPERITONEAL LIMITED (RENAL ONLY) ? CLINICAL INFORMATION: ?? Low GFR. ? COMPARISON: ?? Ultrasound abdomen 04/08/2017. ? TECHNIQUE: ?? Real-time imaging of the kidneys. ? FINDINGS: ? RIGHT KIDNEY: 10.6 x 4.6 x 6.2 cm (SAG x AP x TRV). Cortical thinning. ?? Normal echogenicity. No calculi or focal parenchymal lesions. No ?? hydronephrosis. ? LEFT KIDNEY: 10.2 x 5.0 x 5.5 cm (SAG x AP x TRV). Cortical thinning. ?? Normal echogenicity. No calculi or focal parenchymal lesions. No ?? hydronephrosis. ? US/US renal BI ?? IMPRESSION: ?? Bilateral renal cortical thinning. No hydronephrosis. ? Dictated By: ?Kalin Downing MD ? Signed By: ?<Electronically signed by Kalin Downing MD in OV> ?09/15/23 0959 ? DD/ 1033 ? TD/TT: ? Production Machinist: ChanelK ? Procedure Note Donalvaroter, Image - 09/15/2023 [facility] [address] [place] [address] [place] [address] Ultrasound Report Signed Patient: Cary Weir#: [id number] : 2Acct:[id number] Age/Sex: 72 / MADM Date: 08/26/23 [facility] Dr: Trcae Marquez MD Ordering Physician: Trace Marquez MD Date of Service: 08/26/23 Procedure(s): US renal BI Accession Number(s): [id number] cc: Trace Marquez MD EXAMINATION: US RETROPERITONEAL LIMITED (RENAL ONLY) CLINICAL INFORMATION: Low GFR. COMPARISON: Ultrasound abdomen 04/08/2017. TECHNIQUE: Real-time imaging of the kidneys. FINDINGS: RIGHT KIDNEY: 10.6 x 4.6 x 6.2 cm (SAG x AP x TRV). Cortical thinning. Normal echogenicity. No calculi or focal parenchymal lesions. No hydronephrosis. LEFT KIDNEY: 10.2 x 5.0 x 5.5 cm (SAG x AP x TRV). Cortical thinning. Normal echogenicity. No calculi or focal parenchymal lesions. No hydronephrosis. US/US renal BI IMPRESSION: Bilateral renal cortical thinning. No hydronephrosis. Dictated By: Kalin Downing MD Signed By: <Electronically signed by Kalin Downing MD in OV> 09/15/23 0959 DD/ 1033 TD/TT: Production Machinist: BEATA Trace Marquez MD IMG US PROCEDURES Edited Re sult - Final documented in this encounter Visit Diagnoses Diagnosis Hyperkalemia- Primary Hyperpotassemia Decreased GFR documented in this encounter Additional Health Concerns Assessment Noted Time PHQ-9 Depression Total Score: 2 07/12/19 24 11:45 AM EDT documented as of this encounter Care Teams Shafting Cleaner Relationship Specialty Start Date End Date Trace Marquez MD [address] [place] [address] PCP - General Internal Medicine 09/10/15 documented as of this encounter
--- OUTSIDE RECORDS SUMMARY | 2024-07-17 10:50 | XMS_ITS | Encounter Summary ---
Author Organization [employer] Address [address] [facility] 7t [place] [address] Care Team Providers Care Barber Name Role Phone Trace Marquez MD Primary Care Provider [phone]- [phone] Encounter Details Date Type Department Care Team (Late Contact Info) Description 04/19/[address] [facility] CHC MED & PEDS [address] [place], [place] [phone] Trace Marquez MD [address] [place], [place] [phone] Acute cough (Primary Dx) Social History Tobacco Use Types [...] Description 08/15/2024 9:00 AM EDT Medication Management [facility] MED & PEDS [address] [place], [place] [phone] Laura Rader, PharmD [address] [place] [address] 2024 9:45 AM EDT Office Visit [facility] MED & PEDS [address] [place] [address] Trace Marquez MD [address] [place] [address] documented as of this encounter Visit Diagnoses Diagnosis Acute cough- Primary documented in this encounter Care Teams Barber Relationship Specialty Start Date End Date Trace Marquez MD [address] [place] [address] PCP - General Internal Medicine 09/10/15 documented as of this encounter
--- OUTSIDE RECORDS SUMMARY | 2024-07-17 10:50 | XMS_ITS | Encounter Summary ---
Author Organization [employer] Address 75 [facility] 7t [place] [address] Care Team Providers Care Kitchen Food Server Name Role Phone Trace Marquez MD Primary Care Provider [phone] Reason for Visit * Reason Comments Med Refill Encounter Details Date Type Department Care Team ([facility] st Contact Info) Description 04/19/2024 Refill [facility] MED & PEDS [address] [place], [place] [phone] Ju Mann MD 505 [place], [place] [phone] Social History Tobacco Use Types Packs/Day Years [...] Description 08/15/2024 9:00 AM EDT Medication Management [facility] MED & PEDS [address] [place] [address] Laura Rader, PharmD [address] [place] [address] 2024 9:45 AM EDT Office Visit [facility] MED & PEDS [address] [place] [address] Trace Marquez MD [address] [place] [address] documented as of this encounter Visit Diagnoses Not on filedocumented in this encounter Additional Health Concerns Assessment Noted Time PHQ-9 Depression Total Score: 2 07/12/19 24 11:45 AM EDT documented as of this encounter Care Teams Kitchen Food Server Relationship Specialty Start Date End Date Trace Marquez MD [address] [place] [address] PCP - General Internal Medicine 09/10/15 documented as of this encounter
--- OUTSIDE RECORDS SUMMARY | 2024-07-17 10:50 | XMS_ITS | Encounter Summary ---
Author Organization [employer] Address [address] [facility] [address] 7t [place] [address] Care Team Providers Care College Or [employer] Faculty Member Name Role Phone Trace Marquez MD Primary Care Provider [phone] Encounter Details Date Type Department Care Team (Latest Contact Info) Description 07/17/2024 Travel Social History Tobacco Use Types Packs/Day Years [...] [facility] [address] [place] [address] Laura Rader, PharmD [address] [place] [address] 2024 9:45 AM EDT Office Visit [facility] [address] [place] [address] Trace Marquez MD [address] [place] [address] documented as of this encounter Visit Diagnoses Not on filedocumented in this encounter Additional Health Concerns Assessment Noted Time PHQ-9 Depression Total Score: 2 07/12/19 24 11:45 AM EDT documented as of this encounter Care Teams College Or University Faculty Member Relationship Specialty Start Date End Date Trace Marquez MD [address] [place] [address] PCP - General Internal Medicine 09/10/15 documented as of this encounter
[2024-07-17 14:03] LABS: MANUAL DIFF FLAG NO
[2024-07-17 14:10] LABS: Basophils Absolute Auto 0.1 X10*3/uL (0.0-0.2); Basophils Percent Auto 0.9 % (0-2); Eosinophils Absolute Auto 0.4 X10*3/uL (0.0-0.4); Hematocrit 41.8 % (42.0-52.0); Hemoglobin 14.4 g/dl (14.0-18.0); Imm Gran Abs Auto 0.09 X10*3/uL (0.00-0.03); Imm Gran Pct Auto 1.5 % (0.0-0.4); Lymphocytes Percent Auto 34.7 % (20-40); Mean Corpuscular HGB Conc 34.4 g/dl (31.0-36.0); Mean Corpuscular Hemoglobin 32.1 pg (27.0-33.0); Mean Corpuscular Volume 93.1 fL (80.0-98.0); Mean Platelet Volume 10.3 fL (9.4-12.4); Monocytes Absolute Auto 0.6 X10*3/uL (0.1-1.2); Monocytes Percent Auto 9.5 % (2-11); Neutrophils Absolute Auto 2.8 x10*3/uL (2.0-8.3); Neutrophils Percent Auto 47.4 % (45-73); Platelet Count 225 X10*3/uL (160-400); Red Blood Count 4.49 X10*6/uL (4.60-5.80); Red Cell Distribution Width 12.5 % (11.0-16.0); White Blood Count 5.9 X10*3/uL (4.8-10.8)
[2024-07-17 14:48] LABS: Alanine Aminotransferase 52 U/L (0-40); Albumin Level 4.3 g/dL (3.5-5.0); Alkaline Phosphatase 55 U/L (39-117); Anion Gap 13 (12-20); Aspartate Amino Transferase 32 U/L (5-37); Bilirubin Total 0.7 mg/dL (0.0-1.0); Blood Urea Nitrogen 29 mg/dL (9-16); Calcium 9.4 mg/dL (8.4-10.2); Carbon Dioxide 27 mmol/L (22-29); Chloride 107 mmol/L (96-108); Cholesterol 135 mg/dL (<200); Estimated Glomerular Filt Rate 57; Glucose Random 129 mg/dL (60-115); HDL Cholesterol 38 mg/dL (>40); LDL Cholesterol Calculated 66 mg/dL (<100); Sodium 142 mmol/L (135-145); TSH reflex Free T4 4.23 uIU/mL (0.32-4.0); Triglycerides 159 mg/dL (<150)
[2024-07-17 15:26] LABS: Free T4 (Free Thyroxine) 0.91 ng/dL (0.71-1.85)
== END 2024-07-17 09:42 | disposition home or self-care (01) ==
LOC: HO.CHCLDS 09:41
PROVIDERS: Visit Provider Internal Medicine
DX: E11.9 Type 2 diabetes mellitus without complications (principal); I10 Essential (primary) hypertension
CPT/HCPCS: 36415; 80053; 80061; 84439; 84443; 85025